=== PATIENT | female | born 1995 | race Caucasian/White ===

== ENCOUNTER 2017-12-21 08:41 | Emergency (ER) | payer OTHER, SELFPAY ==
[2017-12-21 09:40] LABS: Absolute Lymphocytes (CBC) 1.6 K/uL (0.7-4.9); Absolute Monocytes 0.4 K/uL (0.1-1.3); Absolute Neutrophil 5.4 K/uL (1.8-8.0); Basophils % 0.8 % (0-1.3); Eosinophils % 0.8 % (0-4.4); Hematocrit 34.3 % (36.0-45.0); Lymphocytes % 21.1 % (15.3-44.8); MCH 26.8 pg (27.0-35.0); MCV 82.1 fL (80-100); MPV 10.3 fL (7.6-11.3); Monocytes % 4.8 % (3.3-12.3); RBC Red Blood Cell Count 4.17 M/uL (3.86-4.86)
[2017-12-21 09:53] LABS: Urine Blood 3+ (NEG); Urine Glucose NEGATIVE (NEG); Urine Protein NEGATIVE (NEG); Urine Specific Gravity 1.025 (1.005-1.030); Urine pH 5.5 (5.0-7.0)
[2017-12-21 10:00] LABS: Urine Bacteria 20-50 /HPF (<20); Urine Culture Reflex Order REFLEXED; Urine Mucus 3+ /HPF (NONE SEEN)
[2017-12-21 10:06] LABS: Potassium 3.7 mmol/L (3.5-5.1)
--- NOTE | 2017-12-21 10:12 | ER ---
Nurse's Notes [facility] Name: Lilibeth Smith Age: 22 yrs Sex: Female : 1995 Arrival Date: 12/21/2017 Time: 08:44 Bed 7 Private MD: out of town, doctor Diagnosis: Abnormal uterine and vaginal bleeding, unspecified Presentation: 12/21 09:18 Presenting complaint: Patient states: had her regular cycle 3 weeks ago, lasted 7 days, iw then it came back last Tuesday and started having heavy bleeding on Tuesday with clots, denies pain or dizziness. Pt uses control pill. Transition of care: patient was not received from another setting of care. Onset of symptoms was December 16, 2017. Risk Assessment: Do you want to hurt yourself or someone else? Patient reports no desire to harm self or others. Initial Sepsis Screen: Does the patient meet any 2 criteria? No. Patient's initial sepsis screen is negative. Does the patient have a suspected source of infection? No. Patient's initial sepsis screen is negative. Care prior to arrival: None. 09:18 Method Of Arrival: Ambulatory iw 09:18 Acuity: AV 3 iw Triage Assessment: 09:10 General: Appears in no apparent distress. comfortable, slender, Behavior is calm, bp cooperative, appropriate for age. 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 - Ebola Screening: : Patient negative for fever greater than or equal to 101.5 degrees Fahrenheit, and additional compatible Ebola Virus Disease symptoms Patient denies exposure to infectious person Patient denies travel to an Ebola-affected area in the 21 days before illness onset No symptoms or risks identified at this time. - Social history:: Smoking status: Patient/guardian denies using tobacco. Screenin:10 Abuse screen: Denies threats or abuse. Denies injuries from another. Nutritional jl7 screening: No deficits noted. Tuberculosis screening: No symptoms or risk factors identified. Fall Risk IV access (20 points). Total Hernandez Fall Scale indicates No Risk (0-24 pts). Assessment: 09:10 General: Appears in no apparent distress. uncomfortable, Behavior is calm, cooperative, jl7 appropriate for age. Pain: Denies pain. Neuro: Level of Consciousness is awake, alert, obeys commands, Oriented to person, place, time, situation. Cardiovascular: Patient's skin is warm and dry. Respiratory: Airway is patent Respiratory effort is even, unlabored, Respiratory pattern is regular, symmetrical. GI: No signs and/or symptoms were reported involving the gastrointestinal system. : Urine is cloudy, Reports vaginal bleeding that is bright red, with clots, heavy flow. EENT: No signs and/or symptoms were reported regarding the EENT system. Derm: Skin is pink, warm \T\ dry. Musculoskeletal: No signs and/or symptoms reported regarding the musculoskeletal system. 10:22 Reassessment: PT D/C HOME AMBULATORY, DX WITH ABNORMAL UTERINE BLEEDING. bp Vital Signs: 09:10 BP 134 / 90; Pulse 76; Resp 16 S; Temp 98.9(O); Pulse Ox 99% on R/A; Pain 0/10; jl7 09:16 BP 127 / 84 Supine; Pulse 85; Resp 16; Pulse Ox 100% on R/A; dh3 09:18 BP 139 / 93 Sitting; Pulse 82; Resp 16; Pulse Ox 100% on R/A; dh3 09:19 BP 119 / 87 Standing; Pulse 84; Resp 18; Pulse Ox 100% on R/A; dh3 09:21 Weight 43.09 kg; Height 5 ft. 4 in. (162.56 cm); Pain 0/10; iw 10:22 BP 121 / 81; Pulse 81; Resp 16; Pulse Ox 100% ; bp 09:21 Body Mass Index 16.31 (43.09 kg, 162.56 cm) iw ED Course: 08:44 Patient arrived in ED. mr 08:44 out of town, doctor is Private Physician. mr 08:47 Danika Pina FNP-C is [facility]. kb 08:47 Josh Petersen MD is Attending Physician. kb 09:10 Patient has correct armband on for positive identification. Bed in low position. Call jl7 light in reach. Side rails up X 1. Pulse ox on. NIBP on. 09:10 Arm band placed on left wrist. bp 09:10 Initial lab(s) drawn, by me, sent to lab. Urine collected: clean catch specimen, jl7 cloudy. Inserted saline lock: 20 gauge in left antecubital area, using aseptic technique. Blood collected. 09:20 Triage completed. iw 09:32 Pranav Padilla, RN is Primary Nurse. jl7 09:38 Urine collected: clean catch specimen, clear. dh3 10:21 No provider procedures requiring assistance completed. IV discontinued, intact, bp bleeding controlled, No redness/swelling at site. Pressure dressing applied. Administered Medications: No medications were administered Outcome: 10:11 Discharge ordered by MD. kb 10:23 Discharged to home ambulatory. bp 10:23 Condition: stable 10:23 Discharge instructions given to patient, Instructed on discharge instructions, follow up and referral plans. Demonstrated understanding of instructions, follow-up care. 10:23 Patient left the ED. bp Addendum: 12/24/2017 09:12 Addendum: Culture Results: Positive urine culture. Bacteria is resistant to, has s s intermediate sensitivity, or is not tested against prescribed antibiotics. Report given to NEGIN for further evaluation and then to can carrier for follow up with patient. Phone call Attempt #1 attempted to call patient, left VM. No answer. Certified letter sent to listed address for patient. Signatures: Danika Pina, HEALTH AND WELLNESS MANAGER-C HEALTH AND WELLNESS MANAGER-Ckb Mayuri Recinos Thalia Thomas, RN SANTOS Krysten Cope, RN SANTOS Pranav Padilla, RN RN jl7 Judit Mcclellan formerly [facility], [facility] Gautam Caal RN RN bp Corrections: (The following items were deleted from the chart) 12/21 09:21 09:18 Presenting complaint: Patient states: had her regular cycle 3 weeks ago, lasted 7 iw days, then it came back last Tuesday and started having heavy bleeding on Tuesday with clots, denies pain or dizziness iw
--- NOTE | 2017-12-21 10:12 | EDPHYS ---
Physician Documentation [facility] Name: Lilibeth Smith Age: 22 yrs Sex: Female : 1995 Arrival Date: 12/21/2017 Time: 08:44 Bed 7 Private MD: out of town, doctor ED Physician Josh Petersen HPI: 12/21 09:26 This 22 yrs old Female presents to ER via Ambulatory with complaints of kb Vaginal Bleeding. 09:26 The patient presents with vaginal bleeding that is moderate, with clots. Onset: The kb symptoms/episode began/occurred 6 day(s) ago, and became worse 3 day(s) ago. Modifying factors: The symptoms are alleviated by nothing, the symptoms are aggravated by nothing. Associated signs and symptoms: Pertinent positives: vaginal bleeding, Pertinent negatives: constipation, cramping, diarrhea, dyspareunia, dysuria, fever, hematuria, nausea, urinary frequency, vaginal discharge, vomiting. Severity of symptoms: At their worst the symptoms were moderate, in the emergency department the symptoms are unchanged. The patient's method of control includes BCP. The patient has not experienced similar symptoms in the past. The patient has not recently seen a physician. 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 - Ebola Screening: : Patient negative for fever greater than or equal to 101.5 degrees Fahrenheit, and additional compatible Ebola Virus Disease symptoms Patient denies exposure to infectious person Patient denies travel to an Ebola-affected area in the 21 days before illness onset No symptoms or risks identified at this time. - Social history:: Smoking status: Patient/guardian denies using tobacco. ROS: 09:26 Constitutional: Negative for fever, chills, and weight loss, Cardiovascular: Negative kb for chest pain, palpitations, and edema, Respiratory: Negative for shortness of breath, cough, wheezing, and pleuritic chest pain, Abdomen/GI: Negative for abdominal pain, nausea, vomiting, diarrhea, and constipation, Back: Negative for injury and pain, MS/Extremity: Negative for injury and deformity, Skin: Negative for injury, rash, and discoloration, Neuro: Negative for headache, weakness, numbness, tingling, and seizure. 09:26 : Positive for vaginal bleeding. Exam: 09:26 Constitutional: This is a well developed, well nourished patient who is awake, alert, kb and in no acute distress. Head/Face: Normocephalic, atraumatic. Chest/axilla: Normal chest wall appearance and motion. Nontender with no deformity. No lesions are appreciated. Cardiovascular: Regular rate and rhythm with a normal S1 and S2. No gallops, murmurs, or rubs. Normal PMI, no JVD. No pulse deficits. Respiratory: Lungs have equal breath sounds bilaterally, clear to auscultation and percussion. No rales, rhonchi or wheezes noted. No increased work of breathing, no retractions or nasal flaring. Abdomen/GI: Soft, non-tender, with normal bowel sounds. No distension or tympany. No guarding or rebound. No evidence of tenderness throughout. Back: No spinal tenderness. No costovertebral tenderness. Full range of motion. Skin: Warm, dry with normal turgor. Normal color with no rashes, no lesions, and no evidence of cellulitis. MS/ Extremity: Pulses equal, no cyanosis. Neurovascular intact. Full, normal range of motion. Neuro: Awake and alert, GCS 15, oriented to person, place, time, and situation. Cranial nerves II-XII grossly intact. Motor strength 5/5 in all extremities. Sensory grossly intact. Cerebellar exam normal. Normal gait. Vital Signs: 09:10 BP 134 / 90; Pulse 76; Resp 16 S; Temp 98.9(O); Pulse Ox 99% on R/A; Pain 0/10; jl7 09:16 BP 127 / 84 Supine; Pulse 85; Resp 16; Pulse Ox 100% on R/A; dh3 09:18 BP 139 / 93 Sitting; Pulse 82; Resp 16; Pulse Ox 100% on R/A; dh3 09:19 BP 119 / 87 Standing; Pulse 84; Resp 18; Pulse Ox 100% on R/A; dh3 09:21 Weight 43.09 kg; Height 5 ft. 4 in. (162.56 cm); Pain 0/10; iw 10:22 BP 121 / 81; Pulse 81; Resp 16; Pulse Ox 100% ; bp 09:21 Body Mass Index 16.31 (43.09 kg, 162.56 cm) iw MDM: 09:12 Patient medically screened. kb 09:26 Data reviewed: vital signs, nurses notes. Data interpreted: Pulse oximetry: on room air kb is 100 %. Interpretation: normal. 10:07 Counseling: I had a detailed discussion with the patient and/or guardian regarding: the kb historical points, exam findings, and any diagnostic results supporting the discharge/admit diagnosis, lab results, the need for outpatient follow up, an OB/Gyne specialist, to return to the emergency department if symptoms worsen or persist or if there are any questions or concerns that arise at home. 12/21 09:19 Order name: CBC with Diff; Complete Time: 09:44 kb 12/21 09:19 Order name: Basic Metabolic Panel; Complete Time: 10:07 kb 12/21 09:40 Order name: Urine Microscopic Only; Complete Time: 10:02 dh3 12/21 09:42 Order name: Urine Dipstick--Ancillary (enter results); Complete Time: 09:56 eb 12/21 09:42 Order name: Urine --Ancillary (enter results); Complete Time: 09:56 eb 12/21 10:02 Order name: Urine Culture [facility] 12/21 09:19 Order name: Orthostatics; Complete Time: 09:32 kb 12/21 09:19 Order name: Urine Dipstick-Ancillary (obtain specimen); Complete Time: 09:33 kb 12/21 09:19 Order name: Urine Test (obtain specimen); Complete Time: 09:33 kb Administered Medications: No medications were administered Disposition: 14:34 Co-signature as Attending Physician, Josh Petersen MD. rn Disposition: 12/21/17 10:11 Discharged to Home. Impression: Abnormal uterine and vaginal bleeding, unspecified. - Condition is Stable. - Discharge Instructions: Abnormal Uterine Bleeding, [id number]. - Medication Reconciliation Form, Thank You Letter, Antibiotic Education, Prescription Opioid Use form. - Follow up: Emergency Department; When: As needed; Reason: Worsening of condition. Follow up: Private Physician; When: 2 - 3 days; Reason: Recheck today's complaints, Continuance of care, Re-evaluation by your physician. Signatures: Dispatcher [employer] EDMA Danika Pina ROLFER-C ROLFER-Ckb Thalia Thomas, RN RN iw Josh Petersen MD MD rn Leal, Jahala, RN RN jl7 Gautam Caal, SANTOS RN bp Corrections: (The following items were deleted from the chart) 10:23 10:11 12/21/2017 10:11 Discharged to Home. Impression: Abnormal uterine and vaginal bp bleeding, unspecified. Condition is Stable. Forms are Medication Reconciliation Form, Thank You Letter, Antibiotic Education, Prescription Opioid Use. Follow up: Emergency Department; When: As needed; Reason: Worsening of condition. Follow up: Private Physician; When: 2 - 3 days; Reason: Recheck today's complaints, Continuance of care, Re-evaluation by your physician. kb
[2017-12-21 10:56] VITALS: TEMP 98.9
[2017-12-21 10:57] VITALS: O2SAT 100
[2017-12-21 11:01] VITALS: BP 121/81
== END 2017-12-21 10:23 | disposition home or self-care (01) ==
LOC: ER 08:41
DX: N93.9 Abnormal uterine and vaginal bleeding, unspecified (principal)
CPT/HCPCS: 36415; 80048; 81003; 81015; 81025; 85025; 87077; 87086; 87088; 87186; 99284